=== PATIENT | male | born 2000 | race Two or more races ===

== ENCOUNTER 2024-07-10 20:33 | Emergency (ER) | payer OTHER ==
[~2024-07-10] VITALS: Ht 180.3 cm; Wt 72.1 kg
[2024-07-10 21:19] VITALS: BP 110/73; O2SAT 98
[2024-07-10] MEDS ORDERED: TRUVADA 100 MG1 EACH PO (22:29)
== END 2024-07-10 22:41 | disposition home or self-care (01) ==
LOC: ER 20:34
DX: Z29.81 Encounter for HIV pre-exposure prophylaxis (principal)